=== PATIENT | female | born 1995 | race Caucasian/White ===

== ENCOUNTER 2018-10-26 09:11 | Outpatient (CLI) | payer MEDICAID ==
--- NOTE | 2018-10-26 10:06 | ULT ---
EXAM: OB ultrasound COMPARISON: None HISTORY: female. Evaluate size, dates, and anatomy. TECHNIQUE: Multiplanar grayscale and color Doppler images were obtained in a transabdominal ult rasound. FINDINGS: There is a single live intrauterine with heart rate of 147 bpm. A survey wa s performed which is unremarkable. The head, intracranial structures, heart, stomach, kidneys, umbilical cord, umbilical cord insertion, spine, face, and extremities were evaluated and were unrema rkable. Estimated weight is 318 g. Average age of the fetus based off today's examination is 20 weeks 0 days. BPD 4.60 cm -- 20 weeks 0 days HC 17.49 cm -- 20 weeks 1 day AC 15.32 cm -- 20 weeks 4 days FL 2.94 cm -- 19 weeks 1 day The placenta is posterior in location without focal abnormality. ELLEN is 9.22 cm which is normal. Ther e is no evidence of placenta previa. IMPRESSION: Single live intrauterine with estimated age of 20 weeks 0 days.
== END 2018-10-26 09:12 | disposition home or self-care (01) ==
LOC: BICULT 09:11
PROVIDERS: ATTEND Nurse Practitioner
DX: Z34.82 Encounter for supervision of other normal pregnancy, second trimester (principal); Z3A.20 20 weeks gestation of pregnancy
CPT/HCPCS: 76805

== ENCOUNTER 2019-03-06 11:15 | Inpatient (IN) | payer OTHER ==
[2019-03-06] MEDS: Lactated Ringer's 1,000 ML IV SCH ×2 (12:23→14:42)
[2019-03-06 12:28] VITALS: BMI 22.6
[2019-03-06] MEDS ORDERED: HYDROcodone/Acetaminophen 5/325 mg Tablet PO PRN ×3 (12:40→21:06)
[2019-03-06] MEDS ORDERED: Diphenoxylate HCl/Atropine Tablet PO PRN (12:40)
[2019-03-06] MEDS ORDERED: Carboprost 250 MCG/ML AMP IM PRN (12:40)
[2019-03-06] MEDS ORDERED: Methylergonovine 0.2 MG/ML VIAL IM PRN (12:40)
[2019-03-06] MEDS ORDERED: Misoprostol 200 MCG TAB PR PRN (12:40)
[2019-03-06] MEDS ORDERED: Ondansetron PF 4 MG/2 ML Vial IVP PRN ×3 (12:40→21:06)
[2019-03-06] MEDS ORDERED: Lidocaine 1% (PF) 30 ML VIAL SC PRN (12:40)
[2019-03-06] MEDS ORDERED: Ibuprofen 800 MG TAB PO PRN (12:40)
[2019-03-06] MEDS ORDERED: Promethazine HCl 25 MG/ML VIAL IM PRN ×3 (12:40→21:06)
[2019-03-06] MEDS ORDERED: Butorphanol Tartrate 1 MG/ML VIAL SLOW IVP PRN (12:40)
[2019-03-06] MEDS ORDERED: hydrALAZINE 20 MG/ML VIAL SLOW IVP PRN ×2 (12:40→21:06)
[2019-03-06] MEDS ORDERED: NS / Oxytocin 40 units/1000ml 1,000 ML IV PRN (12:40)
[2019-03-06] MEDS ORDERED: NS w/ Oxytocin 10 units 500 ML IV SCH ×2 (12:45)
[2019-03-06 13:07] LABS: Hemoglobin 10.9 g/dL (12.0-16.0); Mean Corpuscular HGB CONC 34.8 g/dL (32.0-36.0); Mean Corpuscular Hemoglobin 29.6 pg (27.0-31.0); Mean Corpuscular Volume 85.1 fL (78.0-98.0); Mean Platelet Volume 8.5 fL (7.4-10.4); Platelet Count 245 thou/uL (130-400); RBC Distribution Width 12.7 % (11.5-14.5); White Blood Cell (WBC) Count 9.7 thou/uL (4.8-10.8)
[2019-03-06 13:46] LABS: HBSAg Index 0.11 S/CO (0-0.99); Hep B Surf Ag Non-Reactive S/CO (NonReactive)
[2019-03-06 13:47] LABS: Syphilis Antibody Nonreactive (Nonreactive); Syphilis Antibody Index 0.03 S/CO (<1.00 Non-Reactive)
[2019-03-06] MEDS ORDERED: Fentanyl 4 mcg/Bup 0.1% Cadd 100 ML ONE (13:48)
[2019-03-06] MEDS ORDERED: Lactated Ringer's 500 ML IV PRN (14:17)
[2019-03-06] MEDS ORDERED: Acetaminophen 325 MG TAB PO PRN (14:17)
[2019-03-06] MEDS ORDERED: ePHEDrine/0.9% NaCl/PF SYRINGE 50 mg/10 ml SLOW IVP PRN (14:17)
[2019-03-06] MEDS ORDERED: diphenhydrAMINE 50 MG/ML VIAL IVP PRN (14:17)
[2019-03-06] MEDS ORDERED: Naloxone HCl 0.4 mg/ml Vial IVP PRN ×2 (14:17)
[2019-03-06] MEDS ORDERED: Communication Order-Pharmacy FS SCH (14:30)
[2019-03-06] MEDS ORDERED: Fentanyl 4 mcg/Bupivacaine 0.1% Cassette 100 ML EPIDURAL SCH (14:30)
[2019-03-06] MEDS ORDERED: NS / Oxytocin 40 units/1000ml 1,000 ML IV SCH (21:06)
[2019-03-06] MEDS ORDERED: Milk Of Magnesia 30 ML UDCUP PO PRN (21:06)
[2019-03-06] MEDS ORDERED: Zolpidem Tartrate 5 MG TAB PO PRN (21:06)
[2019-03-06] MEDS ORDERED: Bisacodyl 10 MG SUPP PR PRN (21:06)
[2019-03-06] MEDS ORDERED: diphenhydrAMINE 25 MG CAP PO PRN (21:06)
[2019-03-06] MEDS ORDERED: Preparation H Ointment 28 GM TUBE PR PRN (21:06)
[2019-03-06] MEDS ORDERED: Benzocaine-Menthol 82.5 ML CAN TOP PRN (21:06)
[2019-03-06] MEDS ORDERED: Lanolin Ointment 7 GM TUBE TOP PRN (21:06)
[2019-03-06] MEDS ORDERED: Docusate Calcium (SURFAK) 240 MG CAP PO SCH (21:15)
[2019-03-06] MEDS: Ferrous Sulfate 325 MG TAB PO SCH (21:21)
[2019-03-06] MEDS: Ibuprofen 800 MG TAB PO SCH (21:21)
[2019-03-07] MEDS: Ibuprofen 800 MG TAB PO SCH ×3 (06:09→21:31)
[2019-03-07 06:18] LABS: Hemoglobin 10.3 g/dL (12.0-16.0); Mean Corpuscular Hemoglobin 30.1 pg (27.0-31.0); Mean Corpuscular Volume 88.4 fL (78.0-98.0); Mean Platelet Volume 8.2 fL (7.4-10.4); Platelet Count 204 thou/uL (130-400); RBC Distribution Width 12.7 % (11.5-14.5); Red Blood Cell (RBC) Count 3.43 mill/uL (4.20-5.40); White Blood Cell (WBC) Count 15.1 thou/uL (4.8-10.8)
[2019-03-07] MEDS: Ferrous Sulfate 325 MG TAB PO SCH ×2 (10:07→19:19)
[2019-03-07] MEDS: Prenatal Vitamin 1 TAB PO SCH (10:09)
[2019-03-07] MEDS: Docusate Calcium (SURFAK) 240 MG CAP PO SCH ×2 (10:10→21:31)
[2019-03-08] MEDS ORDERED: Sodium Chloride 0.9% 10 ML ONE (00:25)
[2019-03-08] MEDS: Ibuprofen 800 MG TAB PO SCH (06:17)
[2019-03-08 07:59] VITALS: BP 110/59; TEMP 99
[2019-03-08] MEDS: Ferrous Sulfate 325 MG TAB PO SCH (09:44)
[2019-03-08] MEDS: Docusate Calcium (SURFAK) 240 MG CAP PO SCH (09:44)
[2019-03-08] MEDS: Prenatal Vitamin 1 TAB PO SCH (09:44)
== END 2019-03-08 12:00 | disposition home or self-care (01) | DRG 807 ==
LOC: L&D/OP 11:15 → L&D 12:30 → L&D/OP 12:36 → L&D 12:36 → 3SW 20:32
PROVIDERS: ADMIT Family Medicine; ATTEND Family Medicine
PROC: 10E0XZZ Delivery of Products of Conception, External Approach (ICD-10-PCS; principal; 2019-03-06)
PROC: 10907ZC Drainage of Amniotic Fluid, Therapeutic from Products of Conception, Via Natural or Artificial Opening (ICD-10-PCS; 2019-03-06)
PROC: 0HQ9XZZ Repair Perineum Skin, External Approach (ICD-10-PCS; 2019-03-06)
DX: O70.0 First degree perineal laceration during delivery (principal); Z37.0 Single live birth; Z3A.39 39 weeks gestation of pregnancy
CPT/HCPCS: 36415; 51702; 85027; 86780; 86850; 86900; 86901; 87340; J2001

== ENCOUNTER 2023-12-15 10:38 | Outpatient (CLI) | payer OTHER | END 2023-12-15 10:39 | disposition home or self-care (01) | LOC: BICULT 10:38 | PROVIDERS: ATTEND Family Medicine | DX: N64.4 Mastodynia (principal) ==